=== PATIENT | male | born 1970 | race Caucasian/White ===

== ENCOUNTER 2017-12-04 08:11 | Outpatient (CLI) | payer MEDICAID ==
[~2017-12-04 08:11] MED LIST: SOTALOL PO
== END 2017-12-04 23:59 | disposition home or self-care (01) ==
LOC: DIABETIC 08:11
PROVIDERS: ATTEND Surgery
DX: E66.01 Morbid (severe) obesity due to excess calories (principal); Z71.3 Dietary counseling and surveillance; Z68.43 Body mass index [BMI] 50.0-59.9, adult
CPT/HCPCS: 97802

== ENCOUNTER 2018-01-05 00:14 | Outpatient (CLI) | payer MEDICAID | END 2018-01-05 23:59 | disposition home or self-care (01) | LOC: DIABETIC 00:14 | PROVIDERS: ATTEND Surgery | DX: E66.01 Morbid (severe) obesity due to excess calories (principal); I10 Essential (primary) hypertension; G47.33 Obstructive sleep apnea (adult) (pediatric) | CPT/HCPCS: 97802 ==

== ENCOUNTER 2018-02-02 04:16 | Outpatient (CLI) | payer MEDICAID | END 2018-02-02 23:59 | disposition home or self-care (01) | LOC: DIABETIC 04:16 | PROVIDERS: ATTEND Surgery | DX: E66.01 Morbid (severe) obesity due to excess calories (principal); I10 Essential (primary) hypertension; G47.30 Sleep apnea, unspecified; I48.91 Unspecified atrial fibrillation; Z71.3 Dietary counseling and surveillance; Z79.82 Long term (current) use of aspirin | CPT/HCPCS: 97802 ==

== ENCOUNTER 2018-03-01 02:49 | Outpatient (CLI) | payer MEDICAID | END 2018-03-01 23:59 | disposition home or self-care (01) | LOC: DIABETIC 02:49 | PROVIDERS: ATTEND Surgery | DX: Z71.3 Dietary counseling and surveillance (principal); E66.9 Obesity, unspecified | CPT/HCPCS: 97802 ==

== ENCOUNTER 2018-03-30 00:11 | Outpatient (CLI) | payer MEDICAID | END 2018-03-30 23:59 | disposition home or self-care (01) | LOC: DIABETIC 00:11 | PROVIDERS: ATTEND Surgery | DX: E66.01 Morbid (severe) obesity due to excess calories (principal); E11.9 Type 2 diabetes mellitus without complications; I10 Essential (primary) hypertension; G47.30 Sleep apnea, unspecified | CPT/HCPCS: 97802 ==

== ENCOUNTER 2018-06-22 02:03 | Outpatient (CLI) | payer MEDICAID | END 2018-06-22 23:59 | disposition home or self-care (01) | LOC: DIABETIC 02:03 | PROVIDERS: ATTEND Surgery | DX: E11.9 Type 2 diabetes mellitus without complications (principal); I10 Essential (primary) hypertension; G47.30 Sleep apnea, unspecified; E66.01 Morbid (severe) obesity due to excess calories | CPT/HCPCS: 97802 ==

== ENCOUNTER 2018-11-11 03:37 | Outpatient (CLI) | payer MEDICAID ==
[2018-11-12] MEDS ORDERED: METH20TA40 PO (09:57)
[2018-11-12] MEDS ORDERED: APIX5TAB3 PO (09:57)
[2018-11-12] MEDS ORDERED: DILT360C32 PO (09:57)
[2018-11-12] MEDS ORDERED: FLEC100T2 PO (09:57)
[2018-11-12] MEDS ORDERED: BUPR300T7 PO (09:57)
[2018-11-12] MEDS ORDERED: LOVA20TA2 PO (09:57)
[2018-11-12] MEDS ORDERED: METF-950 PO (09:57)
[2018-11-12] MEDS ORDERED: ZOLP10TA5 PO (09:57)
== END 2018-11-11 23:59 | disposition home or self-care (01) ==
LOC: DIABETIC 03:37
PROVIDERS: ATTEND Surgery
DX: E66.01 Morbid (severe) obesity due to excess calories (principal); E11.9 Type 2 diabetes mellitus without complications; I10 Essential (primary) hypertension
CPT/HCPCS: 97802

== ENCOUNTER 2020-11-08 17:58 | Emergency (ER) | payer MEDICAID ==
[~2020-11-08] VITALS: Ht 182.9 cm; Wt 131.8 kg
[~2020-11-08 17:58] MED LIST changes: +APIX5TAB3 PO; +BUPR300T7 PO; +DILT360C32 PO; +FLEC100T2 PO; +LOVA20TA2 PO; +METF-950 PO; +METH20TA40 PO; -SOTALOL PO; +ZOLP10TA5 PO
[2020-11-08 18:01] VITALS: BP 151/85
--- NOTE | 2020-11-08 20:02 | NUR ---
pt wants to leave per family, he is waiting in car, I explained he should stay to have vascular study reviewed by provider
== END 2020-11-09 00:09 | disposition left against medical advice (07) ==
LOC: ER 17:58
DX: M79.632 Pain in left forearm (principal); Z53.21 Procedure and treatment not carried out due to patient leaving prior to being seen by health care provider
CPT/HCPCS: 93971

== ENCOUNTER 2024-05-12 11:56 | Inpatient (IN) | payer BC, MEDICAID, OTHER ==
[~2024-05-12] VITALS: Ht 177.8 cm; Wt 88.6 kg
[~2024-05-12 11:56] MED LIST changes: +DILT360C25 PO; -DILT360C32 PO; +METF-1203 PO; -METF-950 PO
[2024-05-12 12:26] LABS: BASOPHILS # (AUTO) 0.1 X10'3 (0-0.2); BASOPHILS % (AUTO) 0.8 % (0-1); EOSINOPHILS # (AUTO) 0.2 X10'3 (0-0.9); EOSINOPHILS % (AUTO) 2.5 % (0-6); HEMATOCRIT 40.7 % (42.0-52.0); HEMOGLOBIN 13.2 g/dl (14.0-17.9); LYMPHOCYTES # (AUTO) 1.4 X10'3 (1.1-4.8); LYMPHOCYTES % (AUTO) 18.7 % (21-51); MEAN CORPUSCULAR HEMOGLOBIN 29.7 PG (27.0-31.0); MEAN CORPUSCULAR HGB CONC 32.5 g/dL (33.0-36.5); MEAN CORPUSCULAR VOLUME 91.4 FL (78-98); MONOCYTES # (AUTO) 0.6 X10'3 (0-0.9); MONOCYTES % (AUTO) 8.1 % (2-12); NEUTROPHILS # (AUTO) 5.1 X10'3 (1.8-7.7); NEUTROPHILS % (AUTO) 69.9 % (42-75); PLATELET COUNT 311 X10'3 (140-440); RED BLOOD COUNT 4.45 X10'6 (4.70-6.10); WHITE BLOOD COUNT 7.3 X10'3 (4.5-11.0)
[2024-05-12 12:37] LABS: ALANINE AMINOTRANSFERASE 177 U/L (12-78); ALBUMIN/GLOBULIN RATIO 0.9 (1.1-1.5); ALKALINE PHOSPHATASE 137 IU/L (46-116); ANION GAP 6 (8-16); ASPARTATE AMINO TRANSFERASE 95 U/L (10-37); BILIRUBIN,TOTAL 0.6 MG/DL (0.1-1.0); BLOOD UREA NITROGEN 16 MG/DL (7-18); BUN/CREATININE RATIO 18.8 (10.0-20.0); CHLORIDE 105 MMOL/L (99-107); CREATININE 0.85 MG/DL (0.60-1.10); GLUCOSE 146 MG/DL (70-104); POTASSIUM 4.2 MMOL/L (3.5-5.1); SODIUM 138 MMOL/L (135-145); TOTAL CARBON DIOXIDE 27.5 MMOL/L (24-32); TOTAL PROTEIN 6.5 G/DL (6.4-8.2); eCRCL 104 ML/MIN; eGFR > 90 ML/MIN
[2024-05-12] MEDS: diltiazem 5mg/ml 5ml inj. IV ONE ×4 (12:39→14:03)
[2024-05-12] MEDS: aspirin 81mg tab.chew PO ONE (12:40)
[2024-05-12 12:46] LABS: ETHANOL < 10 MG/DL (<10); PRO BRAIN NATRIURETIC PEPTIDE 5604 PG/ML (0-125); THYROID STIMULATING HORMONE 1.84 ulU/ml (0.34-4.50)
[2024-05-12] MEDS: diltiazem-NS 100mg/100ml 100 ML IV PRN (12:59)
[2024-05-12] MEDS ORDERED: ondansetron/PF 4mg/2ml inj IV PRN (13:40)
[2024-05-12] MEDS ORDERED: acetaminophen 325mg tablet PO PRN ×2 (13:40)
[2024-05-12] MEDS: PERFLUTREN PROTEIN-A MICROSPHR (Optison) 0.22 MG/ML 3ML VIAL IV ONE (13:40)
[2024-05-12] MEDS ORDERED: potassium Cl 40MEQ/1/2NS 520ml 520 ML IV PRN (13:40)
[2024-05-12] MEDS ORDERED: potassium Cl 20 mEq SR tablet PO PRN ×2 (13:40)
[2024-05-12] MEDS ORDERED: HYDROcodone/acetaminophen 10/325mg tab PO PRN (13:40)
[2024-05-12] MEDS ORDERED: magnesium sulf-water 4G/100mL 100 ML IV PRN (13:40)
[2024-05-12] MEDS ORDERED: magnesium sulf-water 2g/50mL 50 ML IV PRN (13:40)
[2024-05-12] MEDS ORDERED: magnesium hydroxide 30ml (MOM) UD suspension PO PRN (13:40)
[2024-05-12] MEDS ORDERED: HYDROcodone/acetaminophen 5mg/325mg tablet PO PRN (13:40)
[2024-05-12 14:23] LABS: APTT 25 SECONDS (22-32); INR 1.2 INR; PROTHROMBIN TIME 12.7 SECONDS (9.0-12.0)
[2024-05-12] MEDS: metoprolol succinate 25mg (24-HOUR) SR. Tablet PO ONE (16:50)
[2024-05-12 18:42] LABS: URINE AMPHETAMINE SCREEN POSITIVE (Neg); URINE BARBITUATE SCREEN NEGATIVE (Neg); URINE BENZODIAZEPINES SCREEN NEGATIVE (Neg); URINE CANNABINOID SCREEN NEGATIVE (Neg); URINE COCAINE SCREEN NEGATIVE (Neg); URINE METHADONE SCREEN NEGATIVE (Neg); URINE OPIATE SCREEN NEGATIVE (Neg); URINE PHENCYCLIDINE SCREEN NEGATIVE (Neg)
[2024-05-12] MEDS: K and/or MAG REPLACEMENT MC SCH (19:18)
[2024-05-12] MEDS: furosemide 10 MG/1 ML 10ml inj IV SCH (19:30)
[2024-05-12] MEDS: apixaban 5mg tablet PO SCH (19:31)
[2024-05-12] MEDS: docusate sod 100mg capsule PO SCH (19:31)
[2024-05-12] MEDS ORDERED: enoxaparin 40mg/0.4ml syringe SQ SCH (20:00)
[2024-05-12] MEDS: mag hydrox/Alum hydrox/simeth 30ml oral suspension PO PRN (21:37)
[2024-05-12 22:00] VITALS: BP 91/65; PULSE 100; RESP 16; TEMP 98.9; O2SAT 94
[2024-05-12] MEDS ORDERED: dextrose 50%-water 50ml dispensing syringe IV PRN ×2 (22:05)
[2024-05-12] MEDS ORDERED: DEXTROSE 15 GM of carb/4 tabs (each vial/BOTTLE has 4 tablets) PO PRN ×2 (22:05)
[2024-05-12] MEDS ORDERED: glucagon, human recombinant 1mg kit SUBCUT PRN (22:05)
[2024-05-13] VITALS (13 sets, daily range): BP systolic 129–149; BP diastolic 94–113; PULSE 76–142; RESP 14–20; TEMP 97.6–97.8; O2SAT 96–98
[2024-05-13] MEDS: ipratropium/albuterol 3ml nebule NEB PRN (01:28)
[2024-05-13] MEDS: digoxin 250mcg/ml 2ml ampule IV ONE (01:32)
[2024-05-13] MEDS ORDERED: amiodarone inj. 450 MG in dextrose 5%-water 241 ML IV SCH (02:00)
[2024-05-13] MEDS: amiodarone 150mg/dext, iso-os 100 ML IV ONE (03:11)
[2024-05-13] MEDS: amiodarone/D5 360MG/200ML BAG 200 ML IV SCH (03:28)
[2024-05-13] MEDS: INSULIN LISPRO 100 UNIT/ML INSULN.PEN MULTI-DOSE SQ SCH (07:00)
[2024-05-13] MEDS: metoprolol succinate 25mg (24-HOUR) SR. Tablet PO SCH (07:22)
[2024-05-13] MEDS: EMPAGLIFLOZIN 10 MG TABLET PO SCH (07:23)
[2024-05-13] MEDS: losartan 50mg tablet PO SCH (07:23)
[2024-05-13 07:46] LABS: BASOPHILS # (AUTO) 0.1 X10'3 (0-0.2); BASOPHILS % (AUTO) 1.2 % (0-1); EOSINOPHILS # (AUTO) 0.2 X10'3 (0-0.9); EOSINOPHILS % (AUTO) 2.1 % (0-6); HEMATOCRIT 39.5 % (42.0-52.0); HEMOGLOBIN 12.9 g/dl (14.0-17.9); LYMPHOCYTES # (AUTO) 1.3 X10'3 (1.1-4.8); LYMPHOCYTES % (AUTO) 17.8 % (21-51); MEAN CORPUSCULAR HEMOGLOBIN 29.5 PG (27.0-31.0); MEAN CORPUSCULAR HGB CONC 32.6 g/dL (33.0-36.5); MEAN CORPUSCULAR VOLUME 90.5 FL (78-98); MEAN PLATELET VOLUME 7.9 FL (7.4-10.4); MONOCYTES # (AUTO) 0.4 X10'3 (0-0.9); MONOCYTES % (AUTO) 5.9 % (2-12); NEUTROPHILS # (AUTO) 5.3 X10'3 (1.8-7.7); PLATELET COUNT 316 X10'3 (140-440); RED BLOOD COUNT 4.37 X10'6 (4.70-6.10); RED CELL DISTRIBUTION WIDTH 13.8 % (11.5-14.5); WHITE BLOOD COUNT 7.3 X10'3 (4.5-11.0)
[2024-05-13 08:28] LABS: ALANINE AMINOTRANSFERASE 167 U/L (12-78); ALBUMIN/GLOBULIN RATIO 0.8 (1.1-1.5); ALKALINE PHOSPHATASE 127 IU/L (46-116); ANION GAP 8 (8-16); ASPARTATE AMINO TRANSFERASE 83 U/L (10-37); BILIRUBIN,TOTAL 0.6 MG/DL (0.1-1.0); BLOOD UREA NITROGEN 15 MG/DL (7-18); BUN/CREATININE RATIO 17.9 (10.0-20.0); CALCIUM 8.2 MG/DL (8.5-10.1); CHLORIDE 103 MMOL/L (99-107); CREATININE 0.84 MG/DL (0.60-1.10); DIGOXIN 0.3 NG/ML (0.9-1.9); GLUCOSE 152 MG/DL (70-104); MAGNESIUM 1.9 MG/DL (1.5-2.4); SODIUM 138 MMOL/L (135-145); TOTAL CARBON DIOXIDE 26.7 MMOL/L (24-32); TOTAL PROTEIN 6.7 G/DL (6.4-8.2); eCRCL 105 ML/MIN; eGFR > 90 ML/MIN
== END 2024-05-13 09:16 | disposition left against medical advice (07) | DRG 291 ==
LOC: ER 11:57 → ED HOLD 13:43 → PCU 3S 22:40
PROVIDERS: ADMIT Family Medicine; ATTEND Family Medicine
DX: I11.0 Hypertensive heart disease with heart failure (principal); I50.21 Acute systolic (congestive) heart failure; I48.91 Unspecified atrial fibrillation; E78.00 Pure hypercholesterolemia, unspecified; E11.9 Type 2 diabetes mellitus without complications; I25.10 Atherosclerotic heart disease of native coronary artery without angina pectoris; R74.01 Elevation of levels of liver transaminase levels; G47.33 Obstructive sleep apnea (adult) (pediatric); Z53.21 Procedure and treatment not carried out due to patient leaving prior to being seen by health care provider; Z98.84 Bariatric surgery status; Z79.84 Long term (current) use of oral hypoglycemic drugs; Z79.899 Other long term (current) drug therapy; Z95.1 Presence of aortocoronary bypass graft; Z91.199 Patient's noncompliance with other medical treatment and regimen due to unspecified reason; Z82.49 Family history of ischemic heart disease and other diseases of the circulatory system
CPT/HCPCS: 36415; 71045; 80053; 80162; 80305; 80320; 82948; 83036; 83735; 83880; 84443; 84484; 85025; 85610; 85730; 87081; 93005; 93306; 94640; 94760; 96365; 96375; 99291; G0378; J0282; J1160; J1815; J1940; J3490

== ENCOUNTER 2024-05-18 14:50 | Inpatient (IN) | payer BC ==
[~2024-05-18] VITALS: Ht 182.9 cm; Wt 93.0 kg
[2024-05-18] MEDS: normal saline 1000ML IV soln IVB ONE (15:21)
[2024-05-18] MEDS: diltiazem 5mg/ml 5ml inj. IV ONE ×2 (15:21→17:34)
[2024-05-18 15:22] LABS: BASOPHILS # (AUTO) 0.1 X10'3 (0-0.2); BASOPHILS % (AUTO) 1.1 % (0-1); EOSINOPHILS # (AUTO) 0.1 X10'3 (0-0.9); HEMATOCRIT 42.4 % (42.0-52.0); HEMOGLOBIN 13.5 g/dl (14.0-17.9); LYMPHOCYTES # (AUTO) 1.8 X10'3 (1.1-4.8); LYMPHOCYTES % (AUTO) 20.3 % (21-51); MEAN CORPUSCULAR HEMOGLOBIN 28.9 PG (27.0-31.0); MEAN CORPUSCULAR HGB CONC 31.8 g/dL (33.0-36.5); MEAN CORPUSCULAR VOLUME 90.6 FL (78-98); MONOCYTES # (AUTO) 0.6 X10'3 (0-0.9); MONOCYTES % (AUTO) 6.6 % (2-12); NEUTROPHILS # (AUTO) 6.2 X10'3 (1.8-7.7); PLATELET COUNT 341 X10'3 (140-440); RED BLOOD COUNT 4.68 X10'6 (4.70-6.10); RED CELL DISTRIBUTION WIDTH 14.3 % (11.5-14.5); WHITE BLOOD COUNT 8.8 X10'3 (4.5-11.0)
[2024-05-18 15:31] LABS: ALANINE AMINOTRANSFERASE 150 U/L (12-78); ALBUMIN 3.3 G/DL (3.4-5.0); ALBUMIN/GLOBULIN RATIO 0.9 (1.1-1.5); ALKALINE PHOSPHATASE 149 IU/L (46-116); ANION GAP 9 (8-16); ASPARTATE AMINO TRANSFERASE 75 U/L (10-37); BILIRUBIN,TOTAL 1.3 MG/DL (0.1-1.0); BLOOD UREA NITROGEN 15 MG/DL (7-18); CALCIUM 8.5 MG/DL (8.5-10.1); CHLORIDE 103 MMOL/L (99-107); CREATININE 1.07 MG/DL (0.60-1.10); GLUCOSE 121 MG/DL (70-104); POTASSIUM 4.2 MMOL/L (3.5-5.1); SODIUM 138 MMOL/L (135-145); TOTAL CARBON DIOXIDE 26.3 MMOL/L (24-32); TOTAL PROTEIN 6.9 G/DL (6.4-8.2); eCRCL 88 ML/MIN; eGFR 72 ML/MIN
[2024-05-18 15:40] LABS: PRO BRAIN NATRIURETIC PEPTIDE 9785 PG/ML (0-125)
[2024-05-18 15:48] LABS: APTT 25 SECONDS (22-32); INR 1.3 INR; PROTHROMBIN TIME 13.4 SECONDS (9.0-12.0)
[2024-05-18] MEDS: diltiazem-NS 100mg/100ml 100 ML IV SCH ×3 (17:43→23:24)
[2024-05-18] MEDS ORDERED: dextrose 50%-water 50ml dispensing syringe IV PRN ×2 (18:15)
[2024-05-18] MEDS ORDERED: potassium Cl 40MEQ/1/2NS 520ml 520 ML IV PRN (18:15)
[2024-05-18] MEDS ORDERED: mag hydrox/Alum hydrox/simeth 30ml oral suspension PO PRN (18:15)
[2024-05-18] MEDS ORDERED: DEXTROSE 15 GM of carb/4 tabs (each vial/BOTTLE has 4 tablets) PO PRN ×2 (18:15)
[2024-05-18] MEDS ORDERED: magnesium hydroxide 30ml (MOM) UD suspension PO PRN (18:15)
[2024-05-18] MEDS ORDERED: magnesium sulf-water 4G/100mL 100 ML IV PRN (18:15)
[2024-05-18] MEDS ORDERED: magnesium sulf-water 2g/50mL 50 ML IV PRN (18:15)
[2024-05-18] MEDS ORDERED: glucagon, human recombinant 1mg kit SUBCUT PRN (18:15)
[2024-05-18] MEDS ORDERED: acetaminophen 325mg tablet PO PRN (18:15)
[2024-05-18] MEDS ORDERED: potassium Cl 20 mEq SR tablet PO PRN ×2 (18:15)
[2024-05-18] MEDS ORDERED: ondansetron/PF 4mg/2ml inj IV PRN (18:15)
[2024-05-18] MEDS: amiodarone 150mg/dext, iso-os 100 ML IV ONE (18:45)
[2024-05-18] MEDS: amiodarone/D5 360MG/200ML BAG 200 ML IV SCH (19:07)
[2024-05-18] MEDS: K and/or MAG REPLACEMENT MC SCH (20:00)
[2024-05-18] MEDS: apixaban 5mg tablet PO SCH (20:21)
[2024-05-18] MEDS: docusate sod 100mg capsule PO SCH (20:21)
[2024-05-18] MEDS: metoprolol succinate 25mg (24-HOUR) SR. Tablet PO SCH (20:21)
[2024-05-18] MEDS: LORazepam 2 mg/ml vial IV ONE ×2 (20:22→23:23)
[2024-05-18] MEDS: INSULIN LISPRO 100 UNIT/ML INSULN.PEN MULTI-DOSE SQ SCH (21:00)
[2024-05-18 23:30] VITALS: BP 124/92; PULSE 126; RESP 18; RESP 26; TEMP 98; O2SAT 98
[2024-05-19] VITALS (27 sets, daily range): BP systolic 106–137; BP diastolic 72–103; PULSE 120–145; RESP 14–25; TEMP 97.8–98.8; O2SAT 97–98
[2024-05-19] MEDS ORDERED: METO-467 PO (01:04)
[2024-05-19] MEDS ORDERED: ASPI-1264 PO (01:05)
[2024-05-19] MEDS: hydrALAZINE 20mg/ml inj. IV ONE (02:26)
[2024-05-19 03:31] LABS: URINE AMPHETAMINE SCREEN NEGATIVE (Neg); URINE BARBITUATE SCREEN NEGATIVE (Neg); URINE BENZODIAZEPINES SCREEN NEGATIVE (Neg); URINE CANNABINOID SCREEN NEGATIVE (Neg); URINE COCAINE SCREEN NEGATIVE (Neg); URINE METHADONE SCREEN NEGATIVE (Neg); URINE OPIATE SCREEN NEGATIVE (Neg); URINE PHENCYCLIDINE SCREEN NEGATIVE (Neg)
[2024-05-19] MEDS: LORazepam 2 mg/ml vial IV ONE (04:23)
[2024-05-19 07:40] LABS: BASOPHILS # (AUTO) 0.1 X10'3 (0-0.2); BASOPHILS % (AUTO) 0.9 % (0-1); EOSINOPHILS # (AUTO) 0.1 X10'3 (0-0.9); EOSINOPHILS % (AUTO) 1.2 % (0-6); HEMATOCRIT 38.9 % (42.0-52.0); HEMOGLOBIN 13.3 g/dl (14.0-17.9); LYMPHOCYTES # (AUTO) 1.8 X10'3 (1.1-4.8); LYMPHOCYTES % (AUTO) 19.7 % (21-51); MEAN CORPUSCULAR HEMOGLOBIN 30.6 PG (27.0-31.0); MEAN CORPUSCULAR HGB CONC 34.3 g/dL (33.0-36.5); MEAN CORPUSCULAR VOLUME 89.2 FL (78-98); MEAN PLATELET VOLUME 8.2 FL (7.4-10.4); MONOCYTES # (AUTO) 0.6 X10'3 (0-0.9); MONOCYTES % (AUTO) 6.8 % (2-12); NEUTROPHILS # (AUTO) 6.7 X10'3 (1.8-7.7); NEUTROPHILS % (AUTO) 71.4 % (42-75); PLATELET COUNT 290 X10'3 (140-440); RED BLOOD COUNT 4.36 X10'6 (4.70-6.10); RED CELL DISTRIBUTION WIDTH 14.3 % (11.5-14.5); WHITE BLOOD COUNT 9.3 X10'3 (4.5-11.0)
[2024-05-19] MEDS: losartan 25mg tablet PO SCH (07:57)
[2024-05-19] MEDS: EMPAGLIFLOZIN 10 MG TABLET PO SCH (07:57)
[2024-05-19] MEDS: furosemide 20 MG/2 ML vial IV SCH (07:58)
[2024-05-19] MEDS: amiodarone 150mg/dext, iso-os 100 ML IV ONE (08:18)
[2024-05-19 08:19] LABS: ALANINE AMINOTRANSFERASE 159 U/L (12-78); ALBUMIN 2.9 G/DL (3.4-5.0); ALBUMIN/GLOBULIN RATIO 0.9 (1.1-1.5); ALKALINE PHOSPHATASE 134 IU/L (46-116); ANION GAP 8 (8-16); ASPARTATE AMINO TRANSFERASE 109 U/L (10-37); BILIRUBIN,TOTAL 0.8 MG/DL (0.1-1.0); BLOOD UREA NITROGEN 14 MG/DL (7-18); BUN/CREATININE RATIO 17.3 (10.0-20.0); CHLORIDE 106 MMOL/L (99-107); CREATININE 0.81 MG/DL (0.60-1.10); GLUCOSE 124 MG/DL (70-104); MAGNESIUM 1.9 MG/DL (1.5-2.4); POTASSIUM 3.8 MMOL/L (3.5-5.1); SODIUM 138 MMOL/L (135-145); TOTAL CARBON DIOXIDE 23.6 MMOL/L (24-32); TOTAL PROTEIN 6.3 G/DL (6.4-8.2); eCRCL 116 ML/MIN; eGFR > 90 ML/MIN
[2024-05-19] MEDS: amiodarone/D5 360MG/200ML BAG 200 ML IV SCH (08:19)
[2024-05-19] MEDS: metoprolol tartrate 1mg/ml inj IV ONE (13:26)
[2024-05-19] MEDS: metoprolol succinate 25mg (24-HOUR) SR. Tablet PO ONE (17:12)
[2024-05-19] MEDS: LORazepam 2 mg/ml vial IV PRN (17:12)
[2024-05-19] MEDS: metoprolol succinate 25mg (24-HOUR) SR. Tablet PO SCH (21:29)
[2024-05-19] MEDS: metoprolol tartrate 1mg/ml inj IV PRN (21:57)
[2024-05-20] VITALS (23 sets, daily range): BP systolic 109–134; BP diastolic 74–104; PULSE 109–131; RESP 10–28; TEMP 97.6–98.2; O2SAT 96–98
[2024-05-20] MEDS: LORazepam 2 mg/ml vial IV PRN (06:08)
[2024-05-20 06:29] LABS: BASOPHILS % (AUTO) 0.2 % (0-1); EOSINOPHILS # (AUTO) 0.2 X10'3 (0-0.9); EOSINOPHILS % (AUTO) 1.9 % (0-6); HEMATOCRIT 40.7 % (42.0-52.0); HEMOGLOBIN 13.3 g/dl (14.0-17.9); LYMPHOCYTES # (AUTO) 1.9 X10'3 (1.1-4.8); LYMPHOCYTES % (AUTO) 22.3 % (21-51); MEAN CORPUSCULAR HEMOGLOBIN 29.1 PG (27.0-31.0); MEAN CORPUSCULAR HGB CONC 32.8 g/dL (33.0-36.5); MEAN CORPUSCULAR VOLUME 88.6 FL (78-98); MEAN PLATELET VOLUME 8.1 FL (7.4-10.4); MONOCYTES # (AUTO) 0.6 X10'3 (0-0.9); MONOCYTES % (AUTO) 7.3 % (2-12); NEUTROPHILS # (AUTO) 5.8 X10'3 (1.8-7.7); NEUTROPHILS % (AUTO) 68.3 % (42-75); PLATELET COUNT 314 X10'3 (140-440); RED BLOOD COUNT 4.59 X10'6 (4.70-6.10); WHITE BLOOD COUNT 8.5 X10'3 (4.5-11.0)
[2024-05-20 06:42] LABS: ALANINE AMINOTRANSFERASE 172 U/L (12-78); ALBUMIN 2.8 G/DL (3.4-5.0); ALBUMIN/GLOBULIN RATIO 0.8 (1.1-1.5); ALKALINE PHOSPHATASE 142 IU/L (46-116); ANION GAP 7 (8-16); ASPARTATE AMINO TRANSFERASE 110 U/L (10-37); BILIRUBIN,TOTAL 0.8 MG/DL (0.1-1.0); BLOOD UREA NITROGEN 19 MG/DL (7-18); BUN/CREATININE RATIO 18.4 (10.0-20.0); CALCIUM 8.1 MG/DL (8.5-10.1); CHLORIDE 104 MMOL/L (99-107); CREATININE 1.03 MG/DL (0.60-1.10); GLUCOSE 135 MG/DL (70-104); MAGNESIUM 1.9 MG/DL (1.5-2.4); POTASSIUM 4.1 MMOL/L (3.5-5.1); SODIUM 135 MMOL/L (135-145); TOTAL CARBON DIOXIDE 24.5 MMOL/L (24-32); TOTAL PROTEIN 6.3 G/DL (6.4-8.2); eCRCL 91 ML/MIN; eGFR 76 ML/MIN
[2024-05-20] MEDS: metoprolol succinate 25mg (24-HOUR) SR. Tablet PO SCH ×2 (08:09→20:30)
[2024-05-20] MEDS: amiodarone 200mg tablet PO SCH (20:29)
[2024-05-21] VITALS (13 sets, daily range): BP systolic 93–123; BP diastolic 57–95; PULSE 103–131; RESP 16–26; TEMP 97.6–98.8; O2SAT 94–99
[2024-05-21 06:01] LABS: BASOPHILS # (AUTO) 0.1 X10'3 (0-0.2); EOSINOPHILS # (AUTO) 0.2 X10'3 (0-0.9); EOSINOPHILS % (AUTO) 1.7 % (0-6); HEMATOCRIT 45.4 % (42.0-52.0); HEMOGLOBIN 14.8 g/dl (14.0-17.9); LYMPHOCYTES # (AUTO) 1.6 X10'3 (1.1-4.8); LYMPHOCYTES % (AUTO) 14.9 % (21-51); MEAN CORPUSCULAR HEMOGLOBIN 29.1 PG (27.0-31.0); MEAN CORPUSCULAR HGB CONC 32.7 g/dL (33.0-36.5); MEAN PLATELET VOLUME 8.4 FL (7.4-10.4); MONOCYTES # (AUTO) 0.8 X10'3 (0-0.9); MONOCYTES % (AUTO) 7.1 % (2-12); NEUTROPHILS # (AUTO) 8.2 X10'3 (1.8-7.7); NEUTROPHILS % (AUTO) 75.3 % (42-75); PLATELET COUNT 334 X10'3 (140-440); RED CELL DISTRIBUTION WIDTH 13.8 % (11.5-14.5); WHITE BLOOD COUNT 10.9 X10'3 (4.5-11.0)
[2024-05-21 06:17] LABS: ALANINE AMINOTRANSFERASE 182 U/L (12-78); ALBUMIN 2.7 G/DL (3.4-5.0); ALBUMIN/GLOBULIN RATIO 0.8 (1.1-1.5); ALKALINE PHOSPHATASE 139 IU/L (46-116); ANION GAP 7 (8-16); ASPARTATE AMINO TRANSFERASE 98 U/L (10-37); BILIRUBIN,TOTAL 0.7 MG/DL (0.1-1.0); BLOOD UREA NITROGEN 20 MG/DL (7-18); BUN/CREATININE RATIO 17.7 (10.0-20.0); CHLORIDE 101 MMOL/L (99-107); CREATININE 1.13 MG/DL (0.60-1.10); GLUCOSE 129 MG/DL (70-104); MAGNESIUM 1.9 MG/DL (1.5-2.4); POTASSIUM 3.9 MMOL/L (3.5-5.1); SODIUM 136 MMOL/L (135-145); TOTAL CARBON DIOXIDE 28.2 MMOL/L (24-32); TOTAL PROTEIN 6.2 G/DL (6.4-8.2); eCRCL 83 ML/MIN; eGFR 68 ML/MIN
[2024-05-21] MEDS: normal saline 500ml IV soln 500 ML IV ONE (08:18)
[2024-05-22] VITALS (7 sets, daily range): BP systolic 102–132; BP diastolic 70–96; PULSE 88–120; RESP 18–21; TEMP 97.2–98.4; O2SAT 96–99
[2024-05-22 06:45] LABS: BASOPHILS # (AUTO) 0.1 X10'3 (0-0.2); BASOPHILS % (AUTO) 0.9 % (0-1); EOSINOPHILS # (AUTO) 0.2 X10'3 (0-0.9); EOSINOPHILS % (AUTO) 2.5 % (0-6); HEMATOCRIT 41.6 % (42.0-52.0); HEMOGLOBIN 13.6 g/dl (14.0-17.9); LYMPHOCYTES # (AUTO) 1.6 X10'3 (1.1-4.8); LYMPHOCYTES % (AUTO) 18.6 % (21-51); MEAN CORPUSCULAR HEMOGLOBIN 29.1 PG (27.0-31.0); MEAN CORPUSCULAR HGB CONC 32.7 g/dL (33.0-36.5); MEAN CORPUSCULAR VOLUME 89.1 FL (78-98); MEAN PLATELET VOLUME 8.3 FL (7.4-10.4); MONOCYTES # (AUTO) 0.7 X10'3 (0-0.9); MONOCYTES % (AUTO) 7.8 % (2-12); NEUTROPHILS % (AUTO) 70.2 % (42-75); PLATELET COUNT 303 X10'3 (140-440); RED BLOOD COUNT 4.67 X10'6 (4.70-6.10); RED CELL DISTRIBUTION WIDTH 14.2 % (11.5-14.5); WHITE BLOOD COUNT 8.5 X10'3 (4.5-11.0)
[2024-05-22 06:55] LABS: ALANINE AMINOTRANSFERASE 131 U/L (12-78); ALBUMIN 2.5 G/DL (3.4-5.0); ALBUMIN/GLOBULIN RATIO 0.7 (1.1-1.5); ALKALINE PHOSPHATASE 122 IU/L (46-116); ANION GAP 8 (8-16); ASPARTATE AMINO TRANSFERASE 58 U/L (10-37); BILIRUBIN,TOTAL 0.7 MG/DL (0.1-1.0); BLOOD UREA NITROGEN 16 MG/DL (7-18); BUN/CREATININE RATIO 15.1 (10.0-20.0); CALCIUM 7.8 MG/DL (8.5-10.1); CHLORIDE 103 MMOL/L (99-107); CREATININE 1.06 MG/DL (0.60-1.10); GLUCOSE 104 MG/DL (70-104); POTASSIUM 3.8 MMOL/L (3.5-5.1); SODIUM 137 MMOL/L (135-145); TOTAL CARBON DIOXIDE 26.4 MMOL/L (24-32); TOTAL PROTEIN 5.9 G/DL (6.4-8.2); eCRCL 88 ML/MIN; eGFR 73 ML/MIN
[2024-05-22] MEDS: digoxin 250mcg/ml 2ml ampule IV ONE (08:49)
[2024-05-22] MEDS ORDERED: EMPA10TA PO (12:59)
[2024-05-22] MEDS ORDERED: AMI200T PO (12:59)
[2024-05-22] MEDS ORDERED: LOSA25TA41 PO (12:59)
[2024-05-22] MEDS ORDERED: APIX5TAB3 PO (12:59)
[2024-05-22] MEDS ORDERED: FURO20TA4 PO (12:59)
[2024-05-22] MEDS ORDERED: METO200T37 PO (12:59)
== END 2024-05-22 13:51 | disposition home or self-care (01) | DRG 291 ==
LOC: ER 14:50 → ED HOLD 18:30 → PCU 3S 23:35
PROVIDERS: ADMIT Family Medicine; ATTEND Family Medicine
DX: I11.0 Hypertensive heart disease with heart failure (principal); I50.23 Acute on chronic systolic (congestive) heart failure; I48.92 Unspecified atrial flutter; E11.9 Type 2 diabetes mellitus without complications; E78.00 Pure hypercholesterolemia, unspecified; F15.10 Other stimulant abuse, uncomplicated; I25.10 Atherosclerotic heart disease of native coronary artery without angina pectoris; I48.91 Unspecified atrial fibrillation; G47.33 Obstructive sleep apnea (adult) (pediatric); R74.01 Elevation of levels of liver transaminase levels; E66.9 Obesity, unspecified; Z79.01 Long term (current) use of anticoagulants; Z79.84 Long term (current) use of oral hypoglycemic drugs; Z82.49 Family history of ischemic heart disease and other diseases of the circulatory system; Z83.3 Family history of diabetes mellitus; Z91.199 Patient's noncompliance with other medical treatment and regimen due to unspecified reason; Z95.1 Presence of aortocoronary bypass graft; Z95.5 Presence of coronary angioplasty implant and graft; Z98.84 Bariatric surgery status; Z88.8 Allergy status to other drugs, medicaments and biological substances; Z68.27 Body mass index [BMI] 27.0-27.9, adult; I25.2 Old myocardial infarction
CPT/HCPCS: 36415; 71045; 80053; 80305; 82948; 83735; 83880; 84484; 85025; 85610; 85730; 87081; 93005; 96365; 96376; 99285; G0378; J0282; J0360; J1160; J1815; J1940; J2060; J3490; J7030; J7040